=== PATIENT | male | born 1975 | race Caucasian/White ===

== ENCOUNTER 2020-06-15 19:30 | Emergency (ER) | payer OTHER, MEDICAID ==
[~2020-06-15] VITALS: Ht 170.2 cm; Wt 83.9 kg
[2020-06-15 19:33] VITALS: BP 128/79
[2020-06-15 19:53] VITALS: BP 128/79
== END 2020-06-15 19:53 | disposition home or self-care (01) ==
LOC: MED 19:30
DX: E11.9 Type 2 diabetes mellitus without complications (principal); F17.200 Nicotine dependence, unspecified, uncomplicated; F12.10 Cannabis abuse, uncomplicated; Z02.89 Encounter for other administrative examinations
CPT/HCPCS: 99283

== ENCOUNTER 2020-12-02 08:33 | Emergency (ER) | payer OTHER, MEDICAID ==
[~2020-12-02] VITALS: Ht 175.3 cm; Wt 92.1 kg
[2020-12-02 08:44] VITALS: BP 155/77
[2020-12-02] MEDS ORDERED: KETOROLAC 60 MG/2 ML VIAL IM ONE (08:50)
[2020-12-02] MEDS ORDERED: IBUP-2213 PO (09:54)
[2020-12-02] MEDS ORDERED: ACET-8386 PO (09:54)
[2020-12-02 10:09] VITALS: BP 155/77
== END 2020-12-02 10:10 | disposition home or self-care (01) ==
LOC: MED 08:33
DX: S22.32XA Fracture of one rib, left side, initial encounter for closed fracture (principal); E11.9 Type 2 diabetes mellitus without complications; X58.XXXA Exposure to other specified factors, initial encounter; Y93.89 Activity, other specified; Y92.89 Other specified places as the place of occurrence of the external cause; Y99.8 Other external cause status
CPT/HCPCS: 71101; 96372; 99283; J1885